=== PATIENT | female | born 1970 | race Caucasian/White ===

== ENCOUNTER → 2023-10-12 06:35 | Outpatient (REF) | payer BC, SELFPAY | LOC: MRI 3T 06:35 | PROVIDERS: ATTENDING PHYSICIAN Pain Medicine Pain Medicine; FAMILY PHYSICIAN Family Medicine | DX: M54.50 Low back pain, unspecified (principal); M54.16 Radiculopathy, lumbar region | CPT/HCPCS: 72148 ==

== ENCOUNTER 2024-02-19 18:20 | Emergency (ER) | payer BC, SELFPAY ==
[2024-02-19 18:25] VITALS: BP 138/96
[2024-02-19] MEDS: ZOFRAN 4 MG IV (19:43)
[2024-02-19] MEDS: NSS 1000 IV (19:44)
[2024-02-19 19:46] VITALS: BMI 39.9
[2024-02-19 19:54] LABS: % Basophils 0.7 % (0-2); % Eosinophils 1.5 % (0-6); % Immature Granulocytes 0.2 % (0-0.5); % Lymphocytes 30.3 % (20.5-51.1); % Monocytes 4.4 % (1.7-9.3); % Neutrophils 62.9 % (42.2-75.2); Absolute Basophils 0.1 10^3/uL (0-0.2); Absolute Eosinophils 0.1 10^3/uL (0-0.7); Absolute Lymphocytes 2.8 10^3/uL (1.2-3.4); Absolute Monocytes 0.4 10^3/uL (0.1-0.6); Absolute Neutrophils 5.8 10^3/uL (1.4-6.5); Hemoglobin 14.9 g/dL (12.0-16.0); Mean Corp Hgb Conc. 34.7 g/dL (33.0-37.0); Mean Corpuscular Hgb 30.6 pg (27.0-31.0); Mean Corpuscular Volume 88.3 fL (81.0-99.0); Mean Platelet Volume 11.2 fL (7.4-10.4); Nucleated Red Blood Cells % 0 %; Platelet Count 263 10^3/uL (130-400); Red Blood Cell Count 4.87 10^6/uL (4.20-5.40); Red Cell Dist. Width 12.6 % (11.5-14.5); White Blood Cell Count 9.2 10^3/uL (4.8-10.8)
[2024-02-19 20:00] VITALS: BP 114/77
[2024-02-19 20:16] LABS: ALT (SGPT) 24 U/L (0-35); AST (SGOT) 24 U/L (14-36); Alkaline Phosphatase 112 U/L (38-126); Blood Urea Nitrogen 4 mg/dl (7-17); Calcium 9.8 mg/dl (8.4-10.2); Carbon Dioxide 28 mmol/L (22-30); Chloride 105 mmol/L (98-107); Estimated Creatinine Clearance 103 ml/min; Glucose 92 mg/dl (70-99); Lipase 59 U/L (23-300); Sodium 138 mmol/L (135-145); Total Bilirubin 0.3 mg/dl (0.2-1.3); Total Protein 6.3 g/dl (6.3-8.2); eGFR > 60.00
[2024-02-19 20:55] LABS: Urine Albumin Negative (Neg - Trace); Urine Bilirubin Negative (Negative); Urine Character Clear (Clear); Urine Color Yellow; Urine Glucose Negative (Negative); Urine Ketone Negative (Negative); Urine Leukocyte 1+ (Negative); Urine Nitrite Negative (Negative); Urine Occult Blood Negative (Negative); Urine Specific Gravity 1.005 (<1.030); Urine Urobilinogen Negative (Neg - 1+)
[2024-02-19 21:15] LABS: Urine Squamous Cell 16-20 /LPF (Few)
[2024-02-19 21:16] LABS: Urine Bacteria Many (Negative); Urine Red Blood Cell 0-2 /HPF (0-2)
--- NOTE | 2024-02-19 21:50 | ED.GENMED ---
Addendum entered and electronically signed by Gerry Meade PA-C 02/23/24 10:40:
Patient's urine culture grew 100,000 CFU of E. coli. There is some resistance but it is susceptible to multiple oral antibiotics. Patient with allergies to penicillin. Bactrim sent to pharmacy. I contacted patient and left a voicemail for them
to contact the ER back to discuss these results.
Original Note:
History of Present Illness
General
Chief Complaint: Abdominal Pain
Source: patient
Exam Limitations: none
Time Seen by Provider: 02/19/24 18:57
Nursing documentation reviewed up to this point in time: agreed with
History of Present Illness
History of Present Illness:
Patient to ED with complaint of RUQ abdominal pain. 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 SHe was told that her liver enzymes were elevated and advised to come to ED. Denies fever/chills. States she had an episode of
vomiting this AM. Brought self to ED for eval.
Past History
Past History
ED Past Medical History: Fibromyalgia, HTN, Psychiatric (Depression, bipolar) and Other (Gastric bypass, MS, DJD, chronic back pain)
ED Past Surgical History: Cholecystectomy and Other (Gastric bypass, bilateral breast implants with silicone implants, ent)
Social History
Tobacco: Smoker
Alcohol: Occasional
Drug: None
Personal: Partner
Living: with family
Employment: Employed
Family History
Family History: Other (Noncontributory)
Review of Systems
Review of Systems
Allergies reviewed?: Yes
All Other Systems: ROS reviewed and negative except as documented in HPI and ROS
Constitutional: Reports no symptoms
EENT: Reports no symptoms
Respiratory: Reports no symptoms
Cardiac: Reports no symptoms
ABD/GI: Reports abdominal pain (RUQ pain)
: Reports no symptoms
Musculoskeletal: Reports no symptoms
Skin: Reports no symptoms
Neurological: Reports no symptoms
Psychiatric: Reports no symptoms
Phy Exam
General Physical Exam
General Presentation: well appearing and no apparent distress
General age: appears stated age
General Skin: warm and dry
General Habitus: normal
Cardiovascular Exam
Cardiovascular Exam: regular rate/rhythm
Gastrointestinal Exam
Gastrointestinal Exam: normal bowel sounds, soft, no organomegaly, no pulsatile mass, non distended and no cva tenderness
Palpation: left upper quadrant: No tenderness, left lower quadrant: No tenderness, right upper quadrant: Mild tenderness and right lower quadrant: No tenderness
Musculoskeletal Exam
Musculoskeletal Exam: full ROM
Skin Exam
Skin Exam: normal color, warm/dry and no rash
Psychiatric Exam
Psychiatric Exam: normal mood/affect
Course
Orders/Labs/Results
Orders:
Orders
02/19/24 19:09
Ondansetron Injectable [Zofran] 4 mg IV NOW STA
02/19/24 19:10
0.9% Sodium Chloride 1000 ml [Nss] 1,000 ml IV BOLUS
02/19/24 19:42
Complete Blood Count/With Diff Urgent
Comprehensive Metabolic Panel Urgent
Lipase Urgent
02/19/24 20:42
Urinalysis Reflex To Culture Urgent
Date Specimen was Collected: 02/19/24
Time Specimen was Collected: 20:25
Urine Microscopic Reflex Cult Urgent
Urine Culture Urgent
WILDER Source: U
Specimen Description:
Date Specimen was Collected: 02/19/24
Time Specimen was Collected: 20:25
02/19/24 20:55
US Abdomen Complete/Upper Urgent
Comment:
Reason For Exam: RUQ pain
02/19/24 21:55
Acetaminophen [Tylenol] 1,000 mg .ROUTE .STK-MED ONE
02/19/24 21:57
Acetaminophen [Tylenol] 1,000 mg PO NOW STA
Abnormal Lab Results
02/19/24 02/19/24
19:42 20:42
MPV 11.2 H fL
(7.4-10.4)
BUN 4 L mg/dl
(7-17)
Leukocyte Esterase Rfl 1+ A
(Negative)
Urine Bacteria (Reflex) Many A
(Negative)
02/19/24 19:42
02/19/24 19:42
Vital Signs
Initial and Last Documented VS:
Initial Vital Signs
Temp Pulse Resp BP Pulse Ox
98.6 F 90 18 138/96 98
02/19/24 18:25 02/19/24 18:25 02/19/24 18:25 02/19/24 18:25 02/19/24 18:25
Last Documented Vital Signs
Temp Pulse Resp BP Pulse Ox
98.6 F 77 16 120/85 100
02/19/24 18:25 02/19/24 22:18 02/19/24 22:18 02/19/24 22:11 02/19/24 21:10
*Radiology
Radiology exam reviewed: radiology read reviewed
*Pulse Oximetry
Patient hypoxic: no
*Critical Care Note
Total Time (30-74mins, 75-104mins- exclusive of procedures): Not Applicable
Update Note
Update Note:
Labs, US report reviewed with patient. No concerning findings on exam tonight. SHe is discharged home, follow up with PCP in AM
ED Attending Note
-
Portions of this chart may have been created with voice recognition software.� Occasional wrong word or��sound alike� substitutions may have occurred due to the inherent limitations of voice recognition software.
Discharge Plan
Departure
Patient Disposition: Home (Routine Discharge)
Date of Disposition: 02/19/24
Time of Disposition: 22:06
Patient with high blood pressure during this ER visit?: No
Condition: Good
Covid-19: Not Applicable
Discharge Problem:
Abdominal pain
Instructions: Abdominal Pain
Prescriptions:
No Action
duloxetine 60 MG capsule,delayed release(DR/EC)
60 mg PO DAILY
aripiprazole 10 MG tablet
20 mg PO DAILY
oxycodone 15 MG tablet
15 mg PO 5/D
cyclosporine [Restasis] 10 DROPS dropperette
1 drp BOTH EYES BID
pregabalin 75 MG capsule
150 mg PO BID
ferrous sulfate [Iron (ferrous sulfate)] 325 MG tablet
325 mg PO DAILY
dextroamphetamine-amphetamine 10 MG tablet
10 mg PO QID
furosemide 20 mg tablet
20 mg PO DAILY 5 Days Qty: 5 0RF
Referrals:
Missael Prabhakar, DO [Family Provider] - Tomorrow
Activity Restrictions/Additional Instructions:
Return to the emergency department immediately for any changes in/worsening of your symptoms.
Interventions
Interventions:
*Risk Screen - Suicide Last Done: 02/19/24 18:28
*General Assessment Last Done: 02/19/24 18:28
*Neglect/Abuse Screening Last Done: 02/19/24 18:28
ED- Fall Risk Assessment Last Done: 02/19/24 20:57
*ED COVID-19 Vaccine History Last Done: 02/19/24 18:28
*Nursing Disposition Last Done: 02/19/24 22:19
GQ-Iuwqqs-Hzbzpllejr Assessment Last Done: 02/19/24 19:47
Discharge Date and Time
Discharge Date/Time: 02/19/24 22:19
Print Language: SINHALA
[2024-02-19 22:11] VITALS: BP 120/85
== END 2024-02-19 22:19 | disposition home or self-care (01) ==
LOC: EMR 18:20
PROVIDERS: Nurse Practitioner; EMERGENCY PHYSICIAN Student in an Organized Health Care Education/Training Program; FAMILY PHYSICIAN Family Medicine
DX: R10.11 Right upper quadrant pain (principal); R11.10 Vomiting, unspecified; R74.8 Abnormal levels of other serum enzymes; I10 Essential (primary) hypertension; M79.7 Fibromyalgia; F31.9 Bipolar disorder, unspecified; F32.A Depression, unspecified; G35 Multiple sclerosis; Q05.9 Spina bifida, unspecified; E03.9 Hypothyroidism, unspecified; F41.9 Anxiety disorder, unspecified; L40.50 Arthropathic psoriasis, unspecified; F17.200 Nicotine dependence, unspecified, uncomplicated; G89.29 Other chronic pain; Z98.84 Bariatric surgery status; Z90.49 Acquired absence of other specified parts of digestive tract; Z88.0 Allergy status to penicillin; Z91.018 Allergy to other foods
CPT/HCPCS: 99284; 96374; 96361; 76700; 80053; 81003; 81015; 83690; 85025; 87077; 87086; 87186

== ENCOUNTER → 2024-03-20 09:21 | Outpatient (REF) | payer BC, SELFPAY | LOC: WDC 09:21 | PROVIDERS: ATTENDING PHYSICIAN Plastic Surgery; FAMILY PHYSICIAN Family Medicine | DX: N64.4 Mastodynia (principal); T85.43XA Leakage of breast prosthesis and implant, initial encounter; T85.44XA Capsular contracture of breast implant, initial encounter; N63.11 Unspecified lump in the right breast, upper outer quadrant | CPT/HCPCS: 77062; 77066 ==

== ENCOUNTER → 2024-03-21 09:00 | Outpatient (REF) | payer BC, SELFPAY | LOC: WDC 09:00 | PROVIDERS: ATTENDING PHYSICIAN Plastic Surgery; FAMILY PHYSICIAN Family Medicine | DX: R92.8 Other abnormal and inconclusive findings on diagnostic imaging of breast (principal) | CPT/HCPCS: 76642 ==